=== PATIENT | female | born 1965 | race Caucasian/White ===

== ENCOUNTER 2018-12-26 01:43 | Emergency (ER) | payer MEDICAID ==
[~2018-12-26] VITALS: Ht 139.7 cm; Wt 80.0 kg
[2018-12-26] MEDS ORDERED: KETOROLAC 60MG/2ML VIAL IM ONE (05:00)
[2018-12-26 06:55] VITALS: BP 123/58
== END 2018-12-26 07:06 | disposition home or self-care (01) ==
LOC: ER 02:49
DX: S92.354A Nondisplaced fracture of fifth metatarsal bone, right foot, initial encounter for closed fracture (principal); I10 Essential (primary) hypertension; R73.03 Prediabetes; Z98.890 Other specified postprocedural states; X50.1XXA Overexertion from prolonged static or awkward postures, initial encounter; Y93.89 Activity, other specified; Y92.89 Other specified places as the place of occurrence of the external cause
CPT/HCPCS: 73630; 96372; 99283; J1885; Z7610